=== PATIENT | female | born 1960 | race Caucasian/White ===

== ENCOUNTER 2021-07-31 08:24 | Outpatient (REF) | payer BC, SELFPAY ==
--- NOTE | ~2021-07-31 | MM_ITS ---
EXAMINATION: MM SCREENING DIGITAL BREAST TOMOSYNTHESIS, BILATERAL CLINICAL INFORMATION: Screening. Asymptomatic. The lifetime risk of breast cancer based on the Tyrer-Cuzick Model is 6%. COMPARISON: Mammography: 07/25/2020, 07/13/2019, 05/29/2018, 04/19/2017 TECHNIQUE: Digital breast tomosynthesis is performed in both the craniocaudal and mediolateral oblique views along with computer-aided detection (CAD). Synthesized 2D images are generated from the tomosynthesis. FINDINGS: There are scattered areas of fibroglandular density (ACR BI-RADS breast composition Category b). There are no significant masses, abnormal calcifications, or other abnormalities. Parenchymal pattern is similar to prior studies. No significant changes. MM/MM tomosynthesis screening BI IMPRESSION: No mammographic evidence of malignancy. ASSESSMENT: BI-RADS 1: Negative RECOMMENDATION: Routine annual mammography screening. This patient's information was entered into a reminder system with a target due date for their next mammogram.
== END 2021-07-31 08:25 | disposition home or self-care (01) ==
LOC: HO.MAMMO 08:24
PROVIDERS: PCP Internal Medicine Endocrinology, Diabetes & Metabolism; Visit Provider Internal Medicine Endocrinology, Diabetes & Metabolism
DX: Z12.31 Encounter for screening mammogram for malignant neoplasm of breast (principal)
CPT/HCPCS: 77063; 77067

== ENCOUNTER 2022-08-07 10:35 | Outpatient (REF) | payer BC, SELFPAY ==
--- NOTE | ~2022-08-07 | MM_ITS ---
EXAMINATION: MM SCREENING DIGITAL BREAST TOMOSYNTHESIS, BILATERAL CLINICAL INFORMATION: Screening. Asymptomatic. The lifetime risk of breast cancer based on the Tyrer-Cuzick Model is 6%. COMPARISON: Mammography: 07/31/2021, 07/25/2020, 07/13/2019, 05/29/2018, 04/19/2017 TECHNIQUE: Digital breast tomosynthesis is performed in both the craniocaudal and mediolateral oblique views along with computer-aided detection (CAD). Synthesized 2D images are generated from the tomosynthesis. FINDINGS: There are scattered areas of fibroglandular density (ACR BI-RADS breast composition Category b). There are no significant masses, abnormal calcifications, or other abnormalities. Parenchymal pattern is similar to prior studies. There is no developing density or architectural abnormality. The axilla and skin contours are unremarkable. No significant changes. MM/MM tomosynthesis screening BI IMPRESSION: No mammographic evidence of malignancy. ASSESSMENT: BI-RADS 1: Negative RECOMMENDATION: Routine annual mammography screening. This patient's information was entered into a reminder system with a target due date for their next mammogram.
== END 2022-08-07 10:36 | disposition home or self-care (01) ==
LOC: HO.MAMMO 10:35
PROVIDERS: PCP Internal Medicine Endocrinology, Diabetes & Metabolism; Visit Provider Internal Medicine Endocrinology, Diabetes & Metabolism
DX: Z12.31 Encounter for screening mammogram for malignant neoplasm of breast (principal)
CPT/HCPCS: 77063; 77067

== ENCOUNTER 2023-08-16 07:48 | Outpatient (REF) | payer MEDICARE, SELFPAY | END 2023-08-16 07:49 | disposition home or self-care (01) | LOC: HO.MAMMO 07:48 | PROVIDERS: PCP Internal Medicine Endocrinology, Diabetes & Metabolism; Visit Provider Internal Medicine Endocrinology, Diabetes & Metabolism | DX: Z12.31 Encounter for screening mammogram for malignant neoplasm of breast (principal) | CPT/HCPCS: 77063; 77067 ==

== ENCOUNTER → 2023-08-16 08:00 | Outpatient (BNV) | payer MEDICARE, SELFPAY | PROVIDERS: PCP Internal Medicine Endocrinology, Diabetes & Metabolism; Visit Provider Radiology Diagnostic Radiology | DX: Z12.31 Encounter for screening mammogram for malignant neoplasm of breast (principal) | CPT/HCPCS: 77063; 77067 ==

== ENCOUNTER 2024-09-11 07:32 | Outpatient (REF) | payer MEDICARE, SELFPAY ==
--- NOTE | ~2024-09-11 | MM_ITS ---
EXAMINATION: MM SCREENING DIGITAL BREAST TOMOSYNTHESIS, BILATERAL CLINICAL INFORMATION: Screening. Asymptomatic. COMPARISON: Mammography: Comparison is made with available priors TECHNIQUE: Digital breast mammography with tomosynthesis is performed in both the craniocaudal and mediolateral oblique views along with computer-aided detection (CAD). FINDINGS: The breasts are heterogeneously dense, which may obscure small masses (ACR BI-RADS breast composition Category c). There are no significant masses, abnormal calcifications, or other abnormalities. MM/MM tomosynthesis screening BI IMPRESSION: No mammographic evidence of malignancy. ASSESSMENT: BI-RADS BI-RADS 1 - Negative RECOMMENDATION: Routine annual mammography screening. 1 year F/U This examination should not preclude the clinical evaluation of a suspicious palpable abnormality. This patient's information was entered into a reminder system with a target due date for their next mammogram. Electronically signed by: Lianet Guillen DO 09/21/2024 10:47 AM EDT
== END 2024-09-11 07:33 | disposition home or self-care (01) ==
LOC: HO.MAMMO 07:32
PROVIDERS: PCP Internal Medicine Endocrinology, Diabetes & Metabolism; Visit Provider Internal Medicine Endocrinology, Diabetes & Metabolism
DX: Z12.31 Encounter for screening mammogram for malignant neoplasm of breast (principal)
CPT/HCPCS: 77063; 77067

== ENCOUNTER → 2024-09-11 07:45 | Outpatient (BNV) | payer MEDICARE, SELFPAY | PROVIDERS: PCP Internal Medicine Endocrinology, Diabetes & Metabolism; Visit Provider Internal Medicine | DX: Z12.31 Encounter for screening mammogram for malignant neoplasm of breast (principal) | CPT/HCPCS: 77063; 77067 ==

== ENCOUNTER 2025-09-17 08:19 | Outpatient (REF) | payer MEDICARE, SELFPAY ==
--- OUTSIDE RECORDS SUMMARY | 2025-09-17 08:53 | XMS_ITS | Clinical Summary ---
Author Organization [facility] Address [address] [place] [address] Phone Care Team Providers Care Mailing Section Clerk Name Role Phone Ursula Jeffers MD Primary Care Provid er Allergies No known active allergies Medications Synthroid 50 mcg tablet Take 1 tablet (50 mcg total) by mouth 1 (one) time each day before breakfast. 01/11/2025 Active Active Problems Problem Noted Date Diagnosed Date Pure hypercholesterolemia 04/09/2025 Assessment & Plan (05/12/2025 10:23 PM EDT): The patient has a history of hyperlipidemia. Lipid panel in November 2023 showed a total cholesterol of 272, triglycerides 145, and LDL of 183. Since then, the patient has made aggressive changes to her diet and also started to exercise more. Follow-up lipid panel done by her PCP in November 2024 showed a total cholesterol of 228, triglycerides 102, HDL 64, and LDL 146. As noted previously, the patient has evidence of a mildly abnormal coronary artery calcium score test. During today's visit, I explained to the patient that given her coronary artery calcifications her LDL target should be 70 or below. Given her noted evidence of coronary artery calcifications, aggressive cholesterol control is indicated in her case in order to reduce her risk of a cardiovascular event such as an IA. In that sense, I recommended initiating a statin. Nevertheless, the patient stated that she does not want to start a statin at this point. She would like to undergo another lipid panel to reevaluate her LDL before deciding if she wants to start a statin. As such, a follow-up lipid panel was ordered during today's visit. Will also measure her lipoprotein a level. Orders: Lipid panel; Future LDL cholesterol, direct; Future Lipoprotein A; Future Elevated coronary artery calcium score Assessment & Plan (05/12/2025 10:23 PM EDT): The patient has had to have a mildly abnormal coronary artery calcium score. On today's visit, he denies any anginal symptoms. The patient states that she exercised is early without experiencing any symptoms. The patient does have a history of hyperlipidemia which is a risk factor for CAD. She also has family history of CAD. Recommended for the patient to start a statin nevertheless the patient wishes to repeat her cholesterol panel prior to deciding on initiation of a statin. Orders: Ambulatory referral to Cardiology ECG 12 lead Medical History Medical History Date Comments Primary hypothyroidism Osteoporosis Pure hypercholesterolemia Degenerative joint disease of thumb Social History Tobacco Use Types Packs/Day Years Used Date Smoking Tobacco: Never Smokeless Tobacco: Never Tobacco Cessation:Counseling Given: Not Answered Alcohol Use Standard Drinks/Week Comments Yes 0 (1 standard drink = 0.6 oz pur e alcohol) socailly Comments Unknown Sex and Gender Information Value Date Recorded Sex Assigned at Not on file Legal Sex Female 2:58 PM EST Gender Identity Not on file Sexual Orientation Not on file Obstetrics History Last Filed Vital Signs Vital Sign Reading Time Taken Comments Blood Pressure 136/70 04/09/2025 11:01 AM EDT Pulse 61 04/09/2025 11:01 AM EDT Temperature - - Respiratory Rate - - Oxygen Saturation 99% 04/09/2025 11:01 AM EDT Inhaled Oxygen Concentration - - Weight 73.1 kg (161 lb 3.2 oz) 04/09/2025 11:01 AM EDT Height 160 cm (5' 3 ) 04/09/2025 11:01 AM EDT Body Mass Index 28.56 04/09/2025 11:01 AM EDT Plan of Treatment Health Maintenance Due Date Last Done Comments Breast Cancer Screening 1960 Colorectal Cancer Screening: Colonoscopy 1960 Depression Screening 11/21/2024 Falls Risk Assessment 12/27/2024 Hepatitis C Screening 12/27/2024 Medicare Annual Wellness Visit 12/27/2024 Osteoporosis Screening (Bone Density Screening) 12/27/2024 Social Influencers of Health Screening 12/27/2024 Hypertension/CHF/CAD Annual BMP Blood Test 04/09/2025 COVID-19 Vaccine ( season) 2025 09/17/2022, 10/18/2021, 03/07/2021, Additional history exists Influenza Vaccine (#1) 2025 09/07/2019 Cholesterol Screening (Lipid Panel) 04/12/2030 04/12/2025, 04/12/2025 DTaP,Tdap,and Td Vaccines (2 - Td or Tdap) 08/17/2031 08/17/2021 RSV Immunization Adult Patients (1 - 1-dose 75+ series) 2033 Zoster Vaccines Completed 10/18/2020, 07/25/2020 Pneumococcal Vaccine: 50+ Years Completed 09/06/2023 HIB Vaccines Aged Out No longer eligi ble based on patient's age to complete this topic HPV Vaccines Aged Out No longer eligi ble based on patient's age to complete this topic Hepatitis A Vaccines Aged Out No long er eligible based on patient's age to complete this topic Hepatitis B Vaccines Aged Out No long er eligible based on patient's age to complete this topic IPV Vaccines Aged Out No longer eligi ble based on patient's age to complete this topic MMR Vaccines Aged Out No longer eligi ble based on patient's age to complete this topic Meningococcal ACWY Vaccine Aged Out N o longer eligible based on patient's age to complete this topic Meningococcal B Vaccine Aged Out No l onger eligible based on patient's age to complete this topic RSV Immunization Patients Under 20 months Aged Out No longer eligible based on patient's age to complete this topic Varicella Vaccines Aged Out No longer eligible based on patient's age to complete this topic Procedures Procedure Name Priority Date/Time Associated Diagnosis Comments LIPID PANEL Routine 04/12/2025 8:40 AM EDT Pure hypercholesterolemia from Last 3 Months or Most Recently Relevant to Health Maintenance Results * (ABNORMAL) Lipid panel (04/12/2025 8:40 AM EDT) Cholesterol Total 222(H) 100 - 199 mg/dL [facility] Triglycerides 71 0 - 149 mg/dL [facility] HDL Cholesterol 69 >39 mg/dL [facility] VLDL Cholesterol Calculated 12 5 - 40 mg/dL [facility] LDL Chol Calc (NIH) 141(H) 0 - 99 mg/dL [facility] LDL Calc Comment Comment [facility] Comment:See LDL Comment if r eported. Blood Venous blood specimen / Unknown 04/12/2025 8:40 AM EDT 04/12/2025 Narrative [facility] - 04/13/2025 4:06 AM EDT Performed at: 01 - [facility] [address] [id number] [employer]: Becky Bassett MD, Phone: [phone] Judd Porter MD LAB BLOOD ORDERABLES F inal Result [facility] 1 from Last 3 Months or Most Recently Relevant to Health Maintenance Insurance MEDICARE [facility] Care Teams Mailing Section Clerk Relationship Specialty Start Date End Date Ursula Jeffers MD PCP - General Endocrinology 12/27/24
== END 2025-09-17 08:20 | disposition home or self-care (01) ==
LOC: HO.MAMMO 08:19
PROVIDERS: PCP Internal Medicine Endocrinology, Diabetes & Metabolism; Visit Provider Internal Medicine Endocrinology, Diabetes & Metabolism
DX: Z12.31 Encounter for screening mammogram for malignant neoplasm of breast (principal)
CPT/HCPCS: 77063; 77067

== ENCOUNTER → 2025-09-17 08:30 | Outpatient (BNV) | payer MEDICARE, SELFPAY | PROVIDERS: PCP Internal Medicine Endocrinology, Diabetes & Metabolism; Visit Provider Internal Medicine | DX: Z12.31 Encounter for screening mammogram for malignant neoplasm of breast (principal) | CPT/HCPCS: 77063; 77067 ==